=== PATIENT | female | born 1990 | race Caucasian/White ===

== ENCOUNTER → 2016-06-20 | Outpatient (CLI) | payer OTHER ==
[~2016-06-20] VITALS: Ht 167.6 cm; Wt 99.8 kg
[~2016-06-20] MED LIST: NO HOME MEDS; SINCALIDE 2 MCG in IV NORMAL SALINE 50ML 30 ML IV ONE
--- NOTE | 2016-06-20 10:50 | RAD ---
Indication epigastric pain. Hepatobiliary scan was performed. 5.2 mCi of technetium labeled Choletec was administered. 2 mcg of CCK was diluted in saline and administered over several minutes. Following the CCK administration a gallbladder ejection fraction calculation was made. There is normal uptake of the radiopharmaceutical in the liver. Activity is seen early in the gallbladder and small bowel. Following the CCK administration the estimated gallbladder ejection fraction is 5% which is substantially diminished. IMPRESSION: Patent cystic duct. Markedly diminished gallbladder ejection fraction
== END | disposition home or self-care (01) ==
LOC: NM 07:17
PROVIDERS: ATTEND Internal Medicine Gastroenterology
DX: R10.13 Epigastric pain (principal); R11.2 Nausea with vomiting, unspecified
CPT/HCPCS: 78226; 96374; 96375; A9537; J2805